=== PATIENT | female | born 1985 | race Caucasian/White ===

== ENCOUNTER 2017-08-09 05:20 | Inpatient (IN) | payer OTHER ==
[2017-08-09] MEDS ORDERED: MEPIVACAINE HCL 1% MPF 30 ML SOL INFIL PRN (05:58)
[2017-08-09] MEDS ORDERED: METHYLERGONOVINE MALEATE 0.2 MG/ML SOL IM PRN (05:58)
[2017-08-09] MEDS ORDERED: LACTATED RINGERS 1,000 ML IV PRN (05:58)
[2017-08-09] MEDS ORDERED: OXYTOCIN 10000 MU/ML SOL IM PRN (05:58)
[2017-08-09] MEDS ORDERED: CARBOPROST 250 MCG/ML SOL IM PRN (05:58)
[2017-08-09] MEDS ORDERED: FENTANYL 100MCG/2ML SOL IV PRN (05:58)
[2017-08-09] MEDS ORDERED: SODIUM CHLORIDE 0.9% FLUSH 10 ML SOL IV PRN (05:58)
[2017-08-09] MEDS: SODIUM CHLORIDE 0.9% FLUSH 10 ML SOL IV SCH ×3 (06:00→21:41)
[2017-08-09] MEDS ORDERED: TEMAZEPAM 15MG 15 MG CAP PO PRN (09:53)
[2017-08-09] MEDS ORDERED: BENZOCAINE/MENTHOL 1 SPR TOP PRN (09:53)
[2017-08-09] MEDS ORDERED: APAP/HYDROCODONE 325/5 TAB PO PRN (09:53)
[2017-08-09] MEDS ORDERED: WITCH HAZEL 1 EA PAD TOP PRN (09:53)
[2017-08-09] MEDS ORDERED: METHYLERGONOVINE MALEATE 0.2 MG TAB PO PRN (09:53)
[2017-08-09] MEDS ORDERED: FLEET ENEMA PR PRN (09:53)
[2017-08-09] MEDS ORDERED: BISACODYL 10 MG SUP PR PRN (09:53)
[2017-08-09] MEDS: IBUPROFEN 600 MG TAB PO PRN ×2 (11:47→22:08)
[2017-08-09] MEDS: DOCUSATE SODIUM 100 MG SGL PO SCH (21:41)
[2017-08-10] MEDS: SODIUM CHLORIDE 0.9% FLUSH 10 ML SOL IV SCH ×2 (05:06→15:47)
[2017-08-10] MEDS: DOCUSATE SODIUM 100 MG SGL PO SCH ×2 (08:35→20:39)
[2017-08-11 00:46] VITALS: TEMP 98.1; O2SAT 98
[2017-08-11] MEDS: DOCUSATE SODIUM 100 MG SGL PO SCH (08:37)
[2017-08-11 10:37] VITALS: BP 119/79; PULSE 90; RESP 18
== END 2017-08-11 11:35 | disposition home or self-care (01) | DRG 775 ==
LOC: OB 05:20 → UNDOADMOB 05:20 → OBSVTOIN 05:20
PROVIDERS: ADMIT Family Medicine; ATTEND Family Medicine
PROC: 10E0XZZ Delivery of Products of Conception, External Approach (ICD-10-PCS; principal; 2017-08-09)
PROC: 0KQM0ZZ Repair Perineum Muscle, Open Approach (ICD-10-PCS; 2017-08-09)
PROC: 10907ZC Drainage of Amniotic Fluid, Therapeutic from Products of Conception, Via Natural or Artificial Opening (ICD-10-PCS; 2017-08-09)
DX: O76 Abnormality in fetal heart rate and rhythm complicating labor and delivery (principal); O70.1 Second degree perineal laceration during delivery; Z3A.39 39 weeks gestation of pregnancy; Z37.0 Single live birth
CPT/HCPCS: 36415; 59025; 85018; J0670; J2590